=== PATIENT | male | born 1975 | race Caucasian/White ===

== ENCOUNTER 2017-02-23 05:42 | Day surgery (SDC) | payer OTHER ==
[2017-02-18 10:52] LABS: APPEARANCE,URINE CLEAR; BILIRUBIN,URINE NEGATIVE (NEGATIVE); GLUCOSE, URINE NEGATIVE (NEGATIVE); KETONES,URINE NEGATIVE (NEGATIVE); LEUKOCYTE ESTERASE,URINE NEGATIVE (NEGATIVE); NITRITE,URINE NEGATIVE (NEGATIVE); PROTEIN,URINE NEGATIVE (NEGATIVE); URINE SPECIFIC GRAVITY 1.018; UROBILINOGEN,URINE NEGATIVE mg/dL (<2.0)
[2017-02-18 10:55] LABS: ABSOLUTE EOSINOPHILS # (AUTO) 0.3 10^3/uL (0.0-0.6); ABSOLUTE LYMPHOCYTES (AUTO) 1.5 10^3/uL (0.5-4.7); ABSOLUTE MONOCYTES (AUTO) 0.5 10^3/uL (0.1-1.4); ABSOLUTE NEUT (AUTO) 4.6 10^3/uL (1.7-8.2); BASOPHILS % (AUTO) 0.6 % (0-2); EOSINOPHILS % (AUTO) 4.2 % (0-6); HEMATOCRIT 41.1 % (37.9-51.0); HEMOGLOBIN 14.3 g/dL (13.5-17.0); HGB HCT DIFFERENCE 1.8; LYMPHOCYTES % (AUTO) 21.9 % (13-45); MEAN CORPUSCULAR HEMOGLOBIN 32.6 pg (27.0-33.4); MEAN CORPUSCULAR HGB CONC 34.7 g/dL (32.0-36.0); MEAN CORPUSCULAR VOLUME 94 fl (80-97); MONOCYTES % (AUTO) 7.6 % (3-13); RED BLOOD COUNT 4.38 10^6/uL (4.35-5.55); SEGMENTED NEUTROPHILS % (AUTO) 65.7 % (42-78)
[2017-02-18 11:29] LABS: ANION GAP 11 (5-19); BLOOD UREA NITROGEN 10 mg/dL (7-20); CARBON DIOXIDE 27 mmol/L (22-30); CHLORIDE 107 mmol/L (98-107); CREATININE RESULT 0.75 mg/dL (0.52-1.25); GLUCOSE 74 mg/dL (75-110); POTASSIUM 4.8 mmol/L (3.6-5.0); SODIUM 144.9 mmol/L (137-145)
[~2017-02-23 05:42] MED LIST: CEFAZOLIN 2 GM/D5W RTU 2 GM/50 ML RTUPB IV PRN; LACTATED RINGERS 1000 ML IV PRN
[2017-02-23] MEDS ORDERED: BUPIVACAINE HCL 0.25% /EPINEPHRINE INJ/PF 30 ML SDV ONE (06:55)
[2017-02-23] MEDS ORDERED: FENTANYL CITRATE INJ/PF 100 MCG/2 ML AMPUL ONE (07:01)
[2017-02-23] MEDS ORDERED: MIDAZOLAM 2 MG/2 ML INJ ONE (07:01)
[2017-02-23] MEDS ORDERED: IBUPROFEN INJ 800 MG/8 ML VIAL IV ONE (07:02)
[2017-02-23] MEDS ORDERED: DEXAMETHASONE SOD PHOSPHATE INJ 4 MG/1 ML VIAL ONE (07:02)
[2017-02-23] MEDS ORDERED: ONDANSETRON HCL INJ/PF 4 MG/2 ML SDV ONE (07:02)
[2017-02-23] MEDS ORDERED: MORPHINE SULFATE 10 MG/ML INJ ONE (07:02)
[2017-02-23] MEDS ORDERED: PROPOFOL INJ 200 MG/20 ML VIAL IV ONE (07:02)
[2017-02-23] MEDS ORDERED: PROMETHAZINE HCL INJ 25 MG/1 ML VIAL IV PRN ×2 (07:40)
[2017-02-23] MEDS ORDERED: MEPERIDINE HCL/PF INJ 25 MG/1 ML DISP.SYRIN IV PRN (07:40)
[2017-02-23] MEDS ORDERED: MORPHINE SULFATE 10 MG/ML INJ IV PRN (07:40)
[2017-02-23] MEDS ORDERED: DIPHENHYDRAMINE HCL 50 MG/ML VIAL IV PRN (07:40)
[2017-02-23] MEDS ORDERED: FENTANYL CITRATE INJ/PF 100 MCG/2 ML AMPUL IV PRN ×3 (07:40)
--- NOTE | 2017-02-23 08:13 | Operative Report ---
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 The right ankle is insufflated with a combination of Marcaine, and epinephrine. Subsequent anterior medial and lateral portals are created for the introduction of the arthroscope and debridements mutation. The joint is examined in systematic fashion with findings as above. Notably this full-thickness cartilage loss anterior medially on the talus and a kissing lesion on the tibia. There is also full- thickness cartilage loss on the lateral aspect of the talus prior to the articulation of the fibula. These are debrided with a combination of a curette , mechanical shaver and subsequently subjected to microfracture with microfracture awls. The joint is again examined in systematic fashion with no new findings. These mutations removed. The portals were reapproximated interrupted nylon. A sterile compressive dressing is applied and the patient's return to the PACU in satisfactory condition.
[2017-02-23] MEDS ORDERED: HYDROCODONE/ACETAMINOPHEN 5-325 MG TABLET PO PRN (08:35)
[2017-02-23] MEDS ORDERED: ONDANSETRON HCL INJ/PF 4 MG/2 ML SDV IV PRN (08:36)
[2017-02-23 09:54] VITALS: BP 125/73
== END 2017-02-23 09:50 | disposition home or self-care (01) ==
LOC: OROUT 05:42
PROVIDERS: ATTEND Orthopaedic Surgery
PROC: 0QBG4ZZ Excision of Right Tibia, Percutaneous Endoscopic Approach (ICD-10-PCS; 2017-02-23)
PROC: 0QBL4ZZ Excision of Right Tarsal, Percutaneous Endoscopic Approach (ICD-10-PCS; principal; 2017-02-23 07:30)
DX: M21.6X1 Other acquired deformities of right foot (principal); M19.071 Primary osteoarthritis, right ankle and foot; F17.210 Nicotine dependence, cigarettes, uncomplicated
CPT/HCPCS: 36415; 85025; 80048; 81001; 29891; J2250; J3490; J1100; J3010; J2270; J2405; J2704; J0690; J1741; 1464

== ENCOUNTER 2018-10-08 09:13 | Emergency (ER) | payer SELFPAY ==
--- NOTE | 2018-10-08 09:27 | ER Document Report ---
ED Medical Screen (RME) - General Chief Complaint: Laceration Stated Complaint: LACERATION/LEFT SIDE OF MOUTH TRAVEL OUTSIDE OF THE [place] IN LAST 30 DAYS: No - HPI Notes: 10/08/18 09:23 Patient is a 43-year-old male who presents complaining of laceration to his left cheek after hitting his head off of the bolt to a lug nut. He did not have any loss of consciousness. Pt states that his leg gave out on him (chronic issues) and he fell. Tetanus is reported to be less than 5 years ago. Denies drug allergies. Denies [place], fever, neck pain, URI, CP, SOB, Abd pain, or rash. I have treated and performed a rapid initial assessment of this patient. A comprehensive ED assessment and evaluation of the patient, analysis of test results and completion of medical decision making process will be conducted by additional ED providers. PHYSICAL EXAMINATION: GENERAL: Well-appearing, well-nourished and in no acute distress. A&Ox4. Answers questions appropriately. Face: there is a 3.5cm irregular laceration noted that does not go through the cheek. when he opens his mouth the wound opens to about 1.5-2cm. Skin otherwise: there are multiple abrasions to the left abd wall from when he fell and hit screws sticking out of a sawhorse. 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 Past Medical History - Past Medical History Cardiac Medical History: Denies: Hx Coronary Artery Disease, Hx Heart Attack, Hx Hypertension Pulmonary Medical History: Denies: Hx Asthma, Hx Bronchitis, Hx COPD, Hx Pneumonia Neurological Medical History: Denies: Hx Cerebrovascular Accident, Hx Seizures Musculoskeltal Medical History: Denies Hx Arthritis - Immunizations Hx Diphtheria, Pertussis, Tetanus Vaccination: Yes History of Influenza Vaccine for 02/2017 - 07/2017 Season: No Physical Exam - Vital signs Vitals: Temp Pulse Resp BP Pulse Ox 98 F 83 20 124/67 97 10/08/18 09:17 10/08/18 09:17 10/08/18 09:17 10/08/18 09:17 10/08/18 09:17 Course - Vital Signs Vital signs: Temp Pulse Resp BP Pulse Ox 98 F 83 20 124/67 97 10/08/18 09:17 10/08/18 09:17 10/08/18 09:17 10/08/18 09:17 10/08/18 09:17
[2018-10-08] MEDS ORDERED: LIDOCAINE 0.5%/EPINEPHRINE INJ 50 ML VIAL INJ ONE (09:47)
[2018-10-08] MEDS ORDERED: HYDROCODONE/ACETAMINOPHEN 7.5-325 MG TABLET PO ONE (09:47)
[2018-10-08] MEDS ORDERED: DIPH/PERTUSS(ACELL)/TETANUS VAC/PF 0.5 ML SYR (>=10YO) IM ONE (10:08)
--- NOTE | 2018-10-08 11:33 | ER Document Report ---
ED Wound - General Chief Complaint: Laceration Stated Complaint: LACERATION/LEFT SIDE OF MOUTH Time Seen by Provider: 10/08/18 09:27 Primary Care Provider: WILLA POMPA MD [Primary Care Provider] - Follow up as needed Notes: RME provider note: Patient is a 43-year-old male who presents complaining of laceration to his left cheek after hitting his head off of the bolt to a lug nut. He did not have any loss of consciousness. Pt states that his leg gave out on him (chronic issues) and he fell. Tetanus is reported to be less than 5 years ago. Denies drug allergies. Denies [place], fever, neck pain, URI, CP, SOB, Abd pain, or rash. My HPI: Patient states he is unsure of when his last tetanus immunization was upon my questioning. 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 Past Medical History - General Information source: Patient - Social History Smoking Status: Current Every Day Smoker Chew tobacco use (# tins/day): No Frequency of alcohol use: Occasional Drug Abuse: None Family History: Reviewed & Not Pertinent Patient has suicidal ideation: No Patient has homicidal ideation: No - Past Medical History Cardiac Medical History: Denies: Hx Coronary Artery Disease, Hx Heart Attack, Hx Hypertension Pulmonary Medical History: Denies: Hx Asthma, Hx Bronchitis, Hx COPD, Hx Pneumonia Neurological Medical History: Denies: Hx Cerebrovascular Accident, Hx Seizures Renal/ Medical History: Denies: Hx Peritoneal Dialysis Musculoskeletal Medical History: Denies Hx Arthritis - Immunizations Hx Diphtheria, Pertussis, Tetanus Vaccination: Yes Review of Systems - Review of Systems Constitutional: No symptoms reported EENT: No symptoms reported Cardiovascular: No symptoms reported Respiratory: No symptoms reported Gastrointestinal: No symptoms reported Genitourinary: No symptoms reported Male Genitourinary: No symptoms reported Musculoskeletal: See HPI Skin: See HPI Hematologic/Lymphatic: No symptoms reported Neurological/Psychological: No symptoms reported Physical Exam - Vital signs Vitals: Temp Pulse Resp BP Pulse Ox 98 F 83 20 124/67 97 10/08/18 09:17 10/08/18 09:17 10/08/18 09:17 10/08/18 09:17 10/08/18 09:17 - Notes Notes: GENERAL: Alert, interacts well. No acute distress. HEAD: Normocephalic, EYES: Pupils equal, round, and reactive to light. Extraocular movements intact. ENT: Oral mucosa moist, tongue midline. Nares patent, no nasal septal hematoma, TM's intact, no hemotympanum noted bilaterally. NECK: Full range of motion. Supple. Trachea midline. LUNGS: Clear to auscultation bilaterally, no wheezes, rales, or rhonchi. No respiratory distress. HEART: Regular rate and rhythm. No murmur ABDOMEN: Soft, non-tender. Non-distended. Bowel sounds present in all 4 quadrants. EXTREMITIES: Moves all 4 extremities spontaneously. No edema, normal radial and dorsalis pedis pulses bilaterally. No cyanosis. BACK: no cervical, thoracic, lumbar midline tenderness. No saddle anesthesia, normal distal neurovascular exam. NEUROLOGICAL: Alert and oriented x3. Normal speech. cranial nerves II through XII grossly intact PSYCH: Normal affect, normal mood. SKIN: Warm, dry, normal turgor. 5 cm jagged laceration noted to the left patient's mouth. Does not go through and through into the patient's mouth. Superficial scratches and abrasions also noted to the left cheek area also from fall. Course - Re-evaluation Re-evalutation: 10/08/18 11:30 Laceration repaired, see procedure note. Discussed close follow-up with primary care provider or return to the emergency room for suture removal. Patient voices understanding, stable for discharge. - Vital Signs Vital signs: Temp Pulse Resp BP Pulse Ox 98 F 83 20 124/67 97 10/08/18 09:17 10/08/18 09:17 10/08/18 09:17 10/08/18 09:17 10/08/18 09:17 Procedures - Laceration/Wound Repair Face Wound length (cm): 4 Wound's Depth, Shape: Irregular, Contused tissue Laceration pre-procedure: Sterile PPE donned, Sterile drapes applied, Shur-Clens applied Anesthetic type: 1% Lidocaine w/epi Volume Anesthetic (mLs): 7 Wound explored: Clean Irrigated w/ Saline (mLs): 500 Wound Debrided: Extensive Wound Repaired With: Sutures Suture Size/Type: 6:0, Ethilon Number of Sutures: 8 Layer Closure?: Yes Deep Layer Suture Size/Type: 4:0 - Vicryl Number Deep Layer Sutures: 4 Post-procedure wound care: Sterile dressing applied Post-procedure NV exam normal: Yes Complications: No Adult Head Front/Back picture: 1 - Jagged laceration, does not go through the vermilion border, does not go through and through. Discharge - Discharge Clinical Impression: Laceration Condition: Stable Disposition: HOME, SELF-CARE Instructions: Antibiotic Ointment Protection (OM), Tetanus Immunization Given (OM), Laceration Care ([facility]) Additional Instructions: As we discussed you have been seen and treated in the emergency department for a laceration to her face. Your sutures need to be removed in the next 5 to 7 days. Please also make sure you return to the emergency room for any concerns of infection to include, redness, swelling, discharge from the wound, fever. Referrals: WILLA POMPA MD [Primary Care Provider] - Follow up as needed
[2018-10-08 11:37] VITALS: BP 111/66
== END 2018-10-08 11:54 | disposition home or self-care (01) ==
LOC: ER 09:13
DX: S01.412A Laceration without foreign body of left cheek and temporomandibular area, initial encounter (principal); W22.09XA Striking against other stationary object, initial encounter; F17.200 Nicotine dependence, unspecified, uncomplicated; Z23 Encounter for immunization; Z91.030 Bee allergy status
CPT/HCPCS: 99282; 90471; 90715; 12013; J3490